=== PATIENT | female | born 1985 | race Caucasian/White ===

== ENCOUNTER 2021-03-29 01:30 | Day surgery (SDC) | payer OTHER, SELFPAY ==
[2021-03-22 09:23] VITALS: BMI 38.0
--- NOTE | 2021-03-22 09:26 | SUR.PREOP ---
Report to the Outpatient Waiting Room, entrance under the green pavilion located off [facility], at time _0830_ on date _03/29/21 _. OR Time: _1030__. - You and your visitor will be asked a series of questions to screen for COVID 19 for your protection. - A mask is required within the hospital. - Only one visitor is allowed at this time. Patient visitors will be guided where to wait when not with patient. Preoperative COVID Testing Requirements: No COVID Test needed if: (proof is required; if not received patient will have Rapid Test prior to entry) - Patient has received COVID Vaccine at least 14 days prior to procedure date or - Patient has positive COVID test result within last 90 days of surgery date. COVID Test needed if above criteria is not met If not COVID vaccinated a COVID test must be conducted within 72 hours of surgery and patient is asked to isolate self from time of testing until procedure. You will go to the [facility] for your COVID testing. The [facility] is located at the corner of [address] [facility]. You will only be called if COVID results are positive and your surgeon may reschedule your elective surgery date. PT TO BRING COVID TEST RESULTS MORNING OF SURGERY Patients may have clear liquids (water, carbonated beverages, clear teas, apple juice) until 3 hours prior to surgery with a maximum of 20 ounces. - No food from midnight until time of surgery BEFORE 0730 MORNING OF SURGERY - Infants may have breast milk until 4 hours before surgery, infant formula 6 hours prior to surgery. - Children will be allowed to drink immediately following surgery. If applicable, please bring a bottle or sippy cup to assist with drinking. Juice, water, soda, and popsicles are readily available. For infants on formula, please bring formula the day of surgery. Pacifiers are allowed. Take the following medications with a SIP of water the morning of surgery: N/A Medications to discontinue per physician ____N/A Date to take last dose____N/A Please no make-up, nail costa rican, hairspray, perfume, deodorant, or body powder the day of surgery. No jewelry (including any body piercings) or valuables the day of surgery, leave them at home. Please take a shower or bath the night before, or the morning of, surgery with an antibacterial soap. Wear comfortable, loose fitting clothing. Children are encouraged to wear pajamas. - Jewelry must be removed prior to entering the operating room. Rings and piercings that are not removed may be cut off. - The hospital will not accept responsibility for valuables. - Please leave all valuables, including medications, at home the day of surgery. If you are going home after surgery, a licensed cdl flatbed truck driver must drive you home. - NO public transportation without another adult. - We recommend that an adult stay with you for 24 hours following discharge. - We also recommend that you do not drive, make important decision, drink alcoholic beverages, or take any drugs that were not prescribed by your health care provider for at least 24 hours after your discharge time. For Pediatric surgeries, we recommend two adults accompany the child home (only one inside the building at this time). Follow any additional instructions given to you from your surgeon. Telephone instructions given to __PATIENT__and asked if any additional questions and then verbalized understanding. Patient advised to call surgeon office or pre surgery nurse liaison [phone] if any additional questions.
--- NOTE | 2021-03-29 07:24 | WPDHPUPDATE1 ---
History and Physical Update Update Date/Time: 03/29/21 07:24 History and Physical has been reviewed, including an updated exam of the patient. There are NO changes in the patient's condition. Risks, benefits, and alternatives have been discussed and questions answered. Patient agrees to proceed with procedure.
--- NOTE | 2021-03-29 07:25 | PM.HPGS ---
History of Present Illness History of Present Illness Consent: Risks, benefits, and alternatives have been discussed and questions answered. Patient agrees to proceed with procedure. Chief complaint: ALLIE II Narrative: Jennifer Marcial is a 36 year old female with persistent abnormal Pap smears. Current Pap test read atypical squamous cells of undetermined significance rule out high-grade. Biopsy revealed moderate dysplasia on endocervical curettings. Patient presents for a LEEP with top hat. Risks of infection, bleeding injury to surrounding tissue, and persistent disease were reviewed. Patient is considering hysterectomy depending on this current result. Review of Systems Review of Systems: not repeated day of surgery; patient states no changes in status REPLACED BY [facility] Past Medical History Medical History (Updated 03/29/21 @ 07:29 by Bibi Linn MD) Anxiety Elevated cholesterol (normal spontaneous vaginal delivery) X2 Surgical History Surgical History (Updated 03/29/21 @ 07:28 by Bibi Linn MD) H/O left knee surgery History of tonsillectomy and adenoidectomy Status post LEEP (loop electrosurgical excision procedure) of cervix 2019 with ALLIE 3 Social History Social History Smoking status: Never smoker Substance use type: does not use Meds Home Medications and Allergies Home Medications Medication Instructions Recorded Confirmed Type No Home Medications 03/22/21 03/22/21 History Allergies Allergy/AdvReac Type Severity Reaction Status Date / Time No Known Allergies Allergy Unverified 05/25/18 10:49 Exam Const: General: healthy appearing and alert Orientation/consciousness: patient oriented x3 Resp: Effort & Inspection: normal respiratory effort Auscultation: clear to auscultation bilaterally Cardio: Rate: regular rate Rhythm: regular rhythm GI: GI Palp: Yes Soft to palpation, No Tenderness to palpation present (GI) and No Palpable mass present : External Female Exam: normal external appearance Speculum Exam - Vagina: normal appearance of the vagina and normal vaginal discharge Speculum Exam - Cervix: normal appearance of the cervix and Other cervical findings present (Colposcopy reveals no ectocervical lesions ) Bimanual exam- vagina & uterus: uterine size normal and consistency normal Bimanual Exam- Adnexa, other: normal adnexae and No adnexal tenderness Neuro: General: patient oriented x3 Assessment and Plan Assessment and plan (1) Moderate dysplasia of cervix: Code(s): N87.1 - Moderate cervical dysplasia Status: Acute Assessment and Plan: Plan is to proceed with LEEP with top hat
[2021-03-29] MEDS: ACETAMINOPHEN 500 MG TABLET 1000 MG PO (09:18)
[2021-03-29] MEDS: LACTATED RINGERS 1,000 ML 30 ML IV CONT (09:46)
--- NOTE | 2021-03-29 09:46 | P.PNAN_ITS ---
Anes - Initial Pre Proc Eval Procedure: Operation Date: 03/29/21 10:30 Proposed Procedures p Loop Electrical Excision Procedure with Top Hat - Bibi Linn MD Date/Time: 03/29/21 09:46 Surgeon: Bibi Linn MD Pre Op Diagnosis: ALLIE II Patient Data Age: 36 Gender: F Height: 1.73 m Weight: 113.4 kg Allergies Allergy/AdvReac Type Severity Reaction Status Date / Time No Known Allergies Allergy Verified 03/29/21 09:15 Home Medications Medication Instructions Recorded Confirmed Type No Home Medications 03/22/21 03/22/21 History Patient hx anesthesia problems: none Family hx anesthesia problems: none Results Review: All pre-operative results and documents have been reviewed as part of the pre-operative evaluation. FORMERLY [facility] Past Medical History Medical History Anxiety Elevated cholesterol (normal spontaneous vaginal delivery) X2 Surgical History Surgical History H/O left knee surgery History of tonsillectomy and adenoidectomy Status post LEEP (loop electrosurgical excision procedure) of cervix 2019 with ALLIE 3 Social History Social History Smoking status: Never smoker Substance use type: does not use Anes - Eval Final PreProcedure Day of Procedure 03/29/21 09:46 Patient weight: obese Heart: regular rate and rhythm Lungs: clear to auscultation Airway: Mallampati scale class II Neurological: alert and oriented Last oral intake: >/= 8 hours ASA classification: II Emergent: no Anesthetic plan: proceed Anesthesia type and monitoring: general GIVS and standard monitoring Results Review: All pre-operative results and documents have been reviewed as part of the pre-operative evaluation. Informed Consent: The patient's anesthetic plan and its attendant risks and benefits were discussed with the patient/family/POA. Questions were solicited and answers provided to the satisfaction of the patient/family/POA.
[2021-03-29 09:49] VITALS: BP 147/83; PULSE 77; RESP 18; TEMP 36.4; O2SAT 99; BMI 39.9
--- NOTE | 2021-03-29 09:58 | SUR.PREOP ---
0940; DR TALAMANTES AT BEDSIDE SPEAKING TO PT. PT STATES SHE'S BEEN HAVING SOME CHEST PAINS PT POINTED TO UPPER STERNUM AREA. STATES ITS WHEN SHE BENDS HER HEAD DOWN. DR TALAMANTES STATES PROBABLY MUSCULOSKELETAL IF PAIN INCREASES WITH MOVEMENT.
[2021-03-29] MEDS: LIDO 1%/EPINEPHRINE 1:100,000 50 ML VIAL 10 ML INFILTRATE (10:28)
[2021-03-29] MEDS: KETOROLAC 30 MG/ML VIAL (*BKC) IV PUSH (10:51)
--- NOTE | 2021-03-29 10:53 | P.OP_ITS ---
Procedure Note - Detailed Date of Procedure 03/29/21 Pre-op Diagnosis ALLIE II Post-op Diagnosis same Procedure Performed LEEP conization with top-hat Surgeon Bibi Linn MD Anesthesia MAC and local Description of Procedure The patient was taken to the operating room and placed under anesthesia in the dorsal lithotomy position. [place] speculum coated was placed in the vagina and the cervix was not able to be visualized posteriorly the lateral wall retractor was used and still unable to visualize well. The long Sidhu speculum was placed as well as the lateral wall retractor and the cervix was able to be fully visualized. The cervix was injected in each quadrant with 1% lidocaine with epinephrine. 10cc total was used. The 2x1cm loop is used to obtain the single pass loop. A 1x1cm loop is used to obtain the top hat. Monsel's was applied to the cone bed and instruments are removed. Sponge, needle, and instrument counts are correct per the OR staff. Patient is awakened from anesthesia and taken to recovery room in stable condition. Estimated Blood Loss 5 Drains No Packing No Pathology yes (LEEP cone marked at 6 with split and top hat) Complications No immediate complications Condition stable Disposition PACU
[2021-03-29 10:58] VITALS: BP 113/66; PULSE 72; RESP 16; O2SAT 98
[2021-03-29 11:30] VITALS: BP 115/68; PULSE 63; O2SAT 99
[2021-03-29 12:00] VITALS: BP 115/73; PULSE 67
== END 2021-03-29 12:25 | disposition home or self-care (01) ==
PROVIDERS: PCP Nurse Practitioner; Visit Provider Obstetrics & Gynecology Gynecology
PROC: 0UBC7ZZ Excision of Cervix, Via Natural or Artificial Opening (ICD-10-PCS; CPT 57522; principal; 2021-03-29 10:30)
DX: D06.0 Carcinoma in situ of endocervix (principal); F41.9 Anxiety disorder, unspecified; E78.00 Pure hypercholesterolemia, unspecified; E66.9 Obesity, unspecified; Z68.39 Body mass index [BMI] 39.0-39.9, adult
CPT/HCPCS: 57522; 88305; A9270; J1100; J1885; J2250; J2405; J2704; J3010; J7120

== ENCOUNTER → 2021-07-30 14:29 | Outpatient (CLI) | payer SELFPAY ==
--- NOTE | ~2021-07-30 | MR_ITS ---
EXAMINATION: MR cervical spine wo con DATE: 07/30/2021 16:00 INDICATION: Severe neck pain. TECHNIQUE: Magnetic resonance imaging (MRI) of the cervical spine was performed without intravenous c ontrast. Sequences included sagittal T2-weighted FSE, sagittal T2-weighted FS FSE, sagittal T1-weight ed FSE, axial MERGE, and axial T2-weighted FSE. COMPARISON: None FINDINGS: There is 3 degrees dextrocurvature of cervicothoracic spine. Vertebral body heights are nor mal. There is mildly decreased disc height at C5-C6. The spinal cord signal intensity is normal. The following disc levels are specifically discussed: C2-C3: The disc does not extend beyond the endplate margin. There is no uncovertebral joint osteoarth ritis. There is no facet joint osteoarthritis. There is no neural foraminal stenosis. There is no makayla tral canal stenosis. C3-C4: The disc does not extend beyond the endplate margin. There is mild left uncovertebral joint os teoarthritis. There is mild bilateral facet joint osteoarthritis. There is no neural foraminal stenos is. There is no central canal stenosis. C4-C5: The disc does not extend beyond the endplate margin. There is no uncovertebral joint osteoarth ritis. There is no facet joint osteoarthritis. There is no neural foraminal stenosis. There is no makayla tral canal stenosis. C5-C6: There is a central protrusion. There is no uncovertebral joint osteoarthritis. There is no fac et joint osteoarthritis. There is no neural foraminal stenosis. There is mild central canal stenosis. C6-C7: The disc does not extend beyond the endplate margin. There is no uncovertebral joint osteoarth ritis. There is mild right and moderate left facet joint osteoarthritis. There is no neural foraminal stenosis. There is no central canal stenosis. C7-T1: The disc does not extend beyond the endplate margin. There is no uncovertebral joint osteoarth ritis. There is mild bilateral facet joint osteoarthritis. There is no neural foraminal stenosis. The re is no central canal stenosis. IMPRESSION: 1. Mild cervical spondylosis. Reviewed, dictated and finalized at location A.
== END ==
PROVIDERS: Visit Provider Emergency Medicine
DX: M54.2 Cervicalgia (principal); M54.6 Pain in thoracic spine; M47.812 Spondylosis without myelopathy or radiculopathy, cervical region
CPT/HCPCS: 72141

== ENCOUNTER 2022-12-04 03:10 | Emergency (ER) | payer OTHER, SELFPAY | END 2022-12-04 15:30 | disposition home or self-care (01) | LOC: EXPGOSH 12-07 15:41 | PROVIDERS: Emergency Provider Nurse Practitioner Family | DX: M25.512 Pain in left shoulder (principal) | CPT/HCPCS: 99213; G0463 ==

== ENCOUNTER 2022-12-13 06:35 | Outpatient (CLI) | payer OTHER, SELFPAY ==
--- NOTE | ~2022-12-13 | MR_ITS ---
EXAMINATION: MR shoulder LT wo con DATE: 12/13/2022 07:29 INDICATION: Left rotator cuff injury. Left shoulder pain. TECHNIQUE: Magnetic resonance imaging (MRI) of the left shoulder was performed without intravenous co ntrast. Sequences included axial PD-weighted FS FSE, coronal oblique PD-weighted FS FSE and T2-weight ed FS FSE, and sagittal oblique T2-weighted FS FSE and T1-weighted FSE. COMPARISON: None. FINDINGS: Coracoacromial arch: The acromion undersurface is curved in morphology (type II). There is mild acromioclavicular joint os teoarthritis. There is a physiologic volume of fluid in subacromial/subdeltoid bursa. Rotator cuff: Supraspinatus tendon is normal. There is mild infraspinatus tendinopathy. Teres minor tendon is jennifer l. Subscapularis tendon is normal. The rotator cuff muscle bellies are normal. Biceps tendon and glenoid labrum: Biceps tendon is in bicipital groove. Intra-articular biceps tendon is normal. The glenoid labrum is normal. Fluid: There is no glenohumeral joint effusion. Bones/cartilage: The glenoid cartilage is normal. Humeral head cartilage is normal. IMPRESSION: 1. Mild infraspinatus tendinopathy. No tear. 2. Mild acromioclavicular joint osteoarthritis. Reviewed, dictated and finalized at location A.
== END 2022-12-13 06:36 | disposition home or self-care (01) ==
LOC: ANHIMG 06:36
DX: S46.009A Unspecified injury of muscle(s) and tendon(s) of the rotator cuff of unspecified shoulder, initial encounter (principal); X58.XXXA Exposure to other specified factors, initial encounter; M19.012 Primary osteoarthritis, left shoulder
CPT/HCPCS: 73221

== ENCOUNTER 2023-10-10 02:08 | Day surgery (SDC) | payer OTHER, SELFPAY ==
[2023-09-26 15:25] VITALS: BMI 38.1
[2023-10-10 08:10] VITALS: BP 134/93; PULSE 76; RESP 17; TEMP 36.1; O2SAT 96; BMI 38.9
[2023-10-10] MEDS: LACTATED RINGERS 1,000 ML 150 ML IV CONT (08:30)
--- NOTE | 2023-10-10 08:40 | WPDANESEPPF ---
Anes - Initial Pre Proc Eval Procedure: Operation Date: 10/10/23 09:30 Proposed Procedures p Esophagogastroduodenoscopy & Colonoscopy - Omar Bear MD Date/Time: 10/10/23 08:40 Surgeon: Omar Bear MD Pre Op Diagnosis: Personal history colon polyps, dysphagia unspecifi Patient Data Age: 38 Gender: F Height: 1.73 m Weight: 116.3 kg Last Vital Signs Temp 97 F L 10/10/23 08:10 Pulse 76 10/10/23 08:10 Resp 17 10/10/23 08:10 BP 134/93 H 10/10/23 08:10 Pulse Ox 96 10/10/23 08:10 O2 Del Method Room Air 10/10/23 08:10 Allergies Allergy/AdvReac Type Severity Reaction Status Date / Time No Known Allergies Allergy Verified 10/10/23 08:10 Home Medications Medication Instructions Recorded Confirmed Type No Home Medications 03/22/21 10/10/23 History Patient hx anesthesia problems: none Family hx anesthesia problems: none Results Review: All pre-operative results and documents have been reviewed as part of the pre-operative evaluation. FORMERLY [facility] Past Medical History Medical History (Updated 07/07/23 @ 10:48 by SOFIE Altamirano) Anxiety Dysphagia Elevated cholesterol Heartburn History of colon polyps (normal spontaneous vaginal delivery) X2 Obese Surgical History Surgical History H/O left knee surgery History of tonsillectomy and adenoidectomy Status post LEEP (loop electrosurgical excision procedure) of cervix 2019 with ALLIE 3 Social History Social History Smoking packs per day: 1 Smoking cigarettes per day: 20.0 Years smoked: 6 Smoking pack-years: 6.00 Smoking status: Former smoker Tobacco type: cigarettes Alcohol intake: never Alcohol use details: Socially Substance use type: does not use Living arrangements: other Additional living arrangements comments: with sp Spiritual care concerns: No Anes - Eval Final PreProcedure Day of Procedure 10/10/23 08:40 Patient weight: morbidly obese Heart: regular rate and rhythm Lungs: clear to auscultation Airway: Mallampati scale class II Neurological: alert and oriented Last oral intake: >/= 8 hours ASA classification: III Emergent: no Anesthetic plan: proceed Anesthesia type and monitoring: general GIVS and standard monitoring Results Review: All pre-operative results and documents have been reviewed as part of the pre-operative evaluation. Informed Consent: The patient's anesthetic plan and its attendant risks and benefits were discussed with the patient/family/POA. Questions were solicited and answers provided to the satisfaction of the patient/family/POA.
--- NOTE | 2023-10-10 09:17 | PM.HPGS ---
History of Present Illness History of Present Illness Consent: Risks, benefits, and alternatives have been discussed and questions answered. Patient agrees to proceed with procedure. Chief complaint: Personal history colon polyps, dysphagia unspecifi Narrative: Jennifer Marcial is a 38 year old female with gerd since 2006 currently not taking any medication but just recently decided to try gluten free diet and symptoms gone, also needs another colonoscopy, last one had polyp. Review of Systems Review of Systems: All systems reviewed & are unremarkable except as noted in HPI and below PMFSH Past Medical History Medical History (Updated 07/07/23 @ 10:48 by VLAD AltamiranoN-Valentin) Anxiety Dysphagia Elevated cholesterol Heartburn History of colon polyps (normal spontaneous vaginal delivery) X2 Obese Surgical History Surgical History H/O left knee surgery History of tonsillectomy and adenoidectomy Status post LEEP (loop electrosurgical excision procedure) of cervix 2019 with ALLIE 3 Social History Social History Smoking packs per day: 1 Smoking cigarettes per day: 20.0 Years smoked: 6 Smoking pack-years: 6.00 Smoking status: Former smoker Tobacco type: cigarettes Alcohol intake: never Alcohol use details: Socially Substance use type: does not use Living arrangements: other Additional living arrangements comments: with sp Spiritual care concerns: No Meds Home Medications and Allergies Home Medications Medication Instructions Recorded Confirmed Type No Home Medications 03/22/21 10/10/23 History Allergies Allergy/AdvReac Type Severity Reaction Status Date / Time No Known Allergies Allergy Verified 10/10/23 08:10 Vital Signs Vital Signs - 24 hr 10/10/23 08:10 Temperature 97 F L Pulse Rate 76 Respiratory Rate 17 Blood Pressure 134/93 H Pulse Oximetry 96 Oxygen Delivery Room Air Exam Const: General: comfortable and no acute distress HENMT: Face/Nose/Sinus: Normal nares present Eyes: General: appearance normal, both eyes and all related structures Neck: Neck: no JVD Resp: Auscultation: clear to auscultation bilaterally Cardio: Rate: regular rate Rhythm: regular rhythm GI: Inspection: non-distended GI Palp: Yes Soft to palpation Skin: General skin exam: normal color Neuro: General: gait normal Speech: normal speech Extrem: General: normal to inspection Psych: Mental Status: mental status grossly normal Assessment and Plan Assessment and plan (1) Heartburn: Code(s): R12 - Heartburn Status: Acute Assessment and Plan: egd with bx (2) History of colon polyps: Code(s): Z86.010 - Personal history of colonic polyps Status: Acute Assessment and Plan: colonoscopy
--- NOTE | 2023-10-10 09:31 | SUR.OPER ---
EGD end 925 COLONSCOPY START 929
[2023-10-10 09:47] VITALS: BP 109/62; PULSE 68; RESP 21; O2SAT 100
[2023-10-10 09:57] VITALS: BP 129/82; PULSE 65; RESP 16; O2SAT 99
[2023-10-10 10:07] VITALS: BP 131/66; PULSE 66; RESP 14; O2SAT 99
== END 2023-10-10 10:16 | disposition home or self-care (01) ==
PROVIDERS: PCP Nurse Practitioner; Referring Provider Nurse Practitioner Family; Visit Provider Internal Medicine Gastroenterology
PROC: 0DJ08ZZ Inspection of Upper Intestinal Tract, Via Natural or Artificial Opening Endoscopic (ICD-10-PCS; CPT 43235; principal; 2023-10-10 09:30)
DX: Z12.11 Encounter for screening for malignant neoplasm of colon (principal); D12.3 Benign neoplasm of transverse colon; K29.80 Duodenitis without bleeding; K29.50 Unspecified chronic gastritis without bleeding; K21.9 Gastro-esophageal reflux disease without esophagitis; Z87.891 Personal history of nicotine dependence; E66.01 Morbid (severe) obesity due to excess calories; Z68.39 Body mass index [BMI] 39.0-39.9, adult
CPT/HCPCS: 45385; 43239; 88305; 88342; J2704; J7120

== ENCOUNTER 2024-06-14 14:46 | Outpatient (CLI) | payer OTHER, SELFPAY ==
--- NOTE | ~2024-06-14 | MR_ITS ---
EXAMINATION: MR ankle LT wo con DATE: 06/14/2024 15:19 INDICATION: Left ankle pain TECHNIQUE: Magnetic resonance imaging (MRI) of the left ankle was performed without intravenous contr ast. Sequences included sagittal, coronal, and axial proton-density weighted fast spin echo without a nd with fat saturation. COMPARISON: None. FINDINGS: Medial ankle ligaments: Deep and superficial deltoid ligaments as well as the spring ligament are normal. Lateral ankle ligaments: The anterior and posterior inferior tibiofibular ligaments are normal. The calcaneofibular and deputy harbormaster ior talofibular ligaments are normal. There is attenuation of the anterior talofibular ligament witho ut surrounding edema consistent with sequela of chronic partial tear. Tendons: Achilles tendon is normal. The peroneus longus and brevis tendons are normal. The tibialis anterior a nd extensor hallucis longus and extensor digitorum longus tendons are normal. The tibialis posterior, flexor digitorum longus and flexor hallucis longus tendons are normal. Plantar fascia: Plantar aponeurosis is normal. Bones/other: Likely chronic osteochondral lesion extending 1.8 cm anteroposteriorly along the medial rim of the ta lar dome with collapse of the articular cortex and underlying subarticular cystlike changes. Small lo w signal intensity bone island at the talar dome. No fracture or pathologic marrow replacing process. Joint spaces are otherwise normal. Fluid: Physiologic amount fluid in the joint space. Small ganglion cyst arising from the lateral dorsal cristian in of the talonavicular joint. No tenosynovitis, bursitis or other abnormal fluid collections. IMPRESSION: 1. Chronic osteochondral lesion some collapse of the articular cortex along the medial rim of the monique ar dome. 2. 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 Reviewed, dictated and finalized at location A. SMISSION TESTER IMPRESSION: 1. Chronic osteochondral lesion some collapse of the articular cortex along the medial rim of the talar dome. 2. 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
--- OUTSIDE RECORDS SUMMARY | 2024-06-14 14:50 | XMS_ITS | Clinical Summary ---
Author Organization [facility] Address [address] [place] [id number] Care Team Providers Care Director Of Preclinical Research Name Role Phone Geovani Dennis CLOTH MEASURER MACHINE Primary Care Provider [phone] Allergies No known active allergies Medications vitamin D2, ergocalciferol, (DRISDOL) 1.25 mg capsule Take 1 capsule (1.25 mg total) by mouth once a week. 3 Active probiotic (FLORAJEN3) Cap capsule Take 1 capsule by mouth daily with breakfast. Active Cholecalciferol (VITAMIN D-3 OR) Take as directed. Active Menaquinone-7 (K2 OR) Take as directed. Active methylPREDNISolon e, TATYANA, (MEDROL DOSEPAK) 4 MG tabletIndications :Acute streptococcal pharyngitis Take 1 tablet (4 mg total) by mouth daily. 6 TABLETS ON DAY ONE, 5 TABLETS DAY TWO, 4 TABLETS DAY THREE, 3 TABLETS DAY FOUR, 2 TABLETS DAY FIVE, AND 1 TABLET DAY SIX 1 each 4 Active Additional Information Patient not taking.Reported on 05/21/2024 Active Problems Problem Noted Date Diagnosed Date Family history of skin cancer 08/25/2022 Chronic right-sided thoracic back pain 3 Knee injury 11/03/2015 Anxiety disorder 08/14/2014 Overview (08/20/2020): Date Onset: 08/19/2011 Depressive disorder 08/14/2014 Overview (08/20/2020): Date Onset: 08/19/2011 Vitamin D deficiency 08/14/2014 Encounters Date Type Department Care Team Description 06/11/2024 Telephone [facility] [address] [place] [address] Geovani Dennis FNP Information 06/03/2024 1:02 PM AEROSPACE TECHNICIAN - 06/03/2024 11:59 PM AEROSPACE TECHNICIAN Hospital Encounter [facility] [address] [place] [address] Birgit Avina MD Discharge Disposition: Home or Self Care (Routine Discharge) 06/03/2024 Orders Only [facility] [address] [place] [address] Birgit Avina MD 05/21/2024 1:20 PM AEROSPACE TECHNICIAN - 05/21/2024 11:59 PM AEROSPACE TECHNICIAN Hospital Encounter [facility] [address] [place] [address] Geovani Dennis FNP Discharge Disposition: Home or Self Care (Routine Discharge) 05/21/2024 12:40 PM AEROSPACE TECHNICIAN Office Visit [facility] [address] [place] [address] Geovani Dennis FNP Ankle (Hurt left ankle Monday, went to turn and it popped really loud, swollen, using ice) 05/21/2024 Orders Only [facility] [address] [place] [address] Geovani Dennis FNP 05/21/2024 Travel from Last 3 Months Immunizations Name Administration Dates Next Due Influenza Adult (Generic) 05/03/2012 Tdap (Generic) 09/27/2012 Social History Tobacco Use Types Packs/Day Years Used Date Smoking Tobacco: Never Passive Smoke Exposure: Never Smokeless Tobacco: Never Tobacco Cessation:Counseling Given: No Comments:Pcp to dianetic counselor Alcohol Use Standard Drinks/Week Comments Yes 0 (1 standard drink = 0.6 oz pur e alcohol) AUDIT-C Answer Date Recorded Q1: How often do you have a drink containing alc ohol? Monthly or less 08/20/2020 Average Number of Drinks Not on file 021 Frequency of Binge Drinking Not on file 07/31 PHQ-2 Answer Date Recorded Patient Health Questionnaire-2 Score 0 06/15/2023 Comments No Sex and Gender Information Value Date Recorded Sex Assigned at Female 05/21/2024 1:23 PM AEROSPACE TECHNICIAN Legal Sex Female 7:15 PM CDT Gender Identity Not on file Sexual Orientation Not on file Last Filed Vital Signs Vital Sign Reading Time Taken Comments Blood Pressure 120/82 05/21/2024 12:49 PM AEROSPACE TECHNICIAN Pulse 83 05/21/2024 12:49 PM AEROSPACE TECHNICIAN Temperature 36.3 C (97.3 F) 05/21/2024 12:49 PM AEROSPACE TECHNICIAN Respiratory Rate 16 09/23/2023 8:22 AM CDT Oxygen Saturation 97% 05/21/2024 12:49 PM AEROSPACE TECHNICIAN Inhaled Oxygen Concentration - - Weight 117.9 kg (260 lb) 05/21/2024 12:49 PM AEROSPACE TECHNICIAN Height 174 cm (5' 8.5 ) 05/21/2024 12:49 PM AEROSPACE TECHNICIAN Body Mass Index 38.96 05/21/2024 12:49 PM AEROSPACE TECHNICIAN Plan of Treatment Health Maintenance Due Date Last Done Comments Cervical Cancer Screening Pa p Smear (Age 30 to 64) Every 3 Years 1983 Annual Physical 1986 Hepatitis C 2001 Hepatitis B Vaccines (1 of 3 - 19+ 3-dose series) 2002 Cervical Cancer Screening Pa p with HPV Testing (Age 30 to 64) Every 5 Years 2013 Cervical Cancer Screening with HPV 2013 DTaP, Tdap and Td Vaccines ( 2 - Td or Tdap) 09/27/2022 09/27/2012 Mammogram Screening 2023 COVID-19 Vaccine (2023-2 5 season) 2023 Influenza Adult (#1) 2024 05/03/2012 PHQ-2 (Physician [place]) 05/01/2024 06/15/2023 HPV Vaccines Aged Out No longer eligi ble based on patient's age to complete this topic Meningococcal B Vaccine Aged Out No l onger eligible based on patient's age to complete this topic Meningococcal Vaccine Aged Out No filippo dinah eligible based on patient's age to complete this topic Pneumococcal Vaccine: Pediat rics (0 to 5 Years) and At-Risk Patients (6 to 64 Years) Aged Out No longer eligi ble based on patient's age to complete this topic RSV Immunizations Under 20 Months Aged Out No longer eligible based on patient's age to complete this topic Procedures Procedure Name Priority Date/Time Associated Diagnosis Comments CBC W/DIFF AUTOMATED Routine 06/03/2024 12:20 PM AEROSPACE TECHNICIAN Erythrocytosis LDH, LACTATE DEHYDROGENASE Routine 06/03/2024 12:20 PM AEROSPACE TECHNICIAN Erythrocytosis ERYTHROPOIETIN Routine 06/03/2024 12:20 PM AEROSPACE TECHNICIAN Erythrocytosis XR ANKLE LT M3V Routine 05/21/2024 1:38 PM AEROSPACE TECHNICIAN Ankle injury, left, initial encounter from Last 3 Months Results * LDH, LACTATE DEHYDROGENASE (06/03/2024 12:20 PM AEROSPACE TECHNICIAN) LDH 196 84 - 246 UNITS/L 06/03/2024 8:24 PM AEROSPACE TECHNICIAN [facility] 06/03/2024 12:2 0 PM AEROSPACE TECHNICIAN us Birgit Avina MD LABORATORY Final Result [facility] [address] [place] [address], * ERYTHROPOIETIN (06/03/2024 12:20 PM AEROSPACE TECHNICIAN) ERYTHROPOIETIN 13.8 2.6 - 18.5 mIU/mL 06/05/2024 8:57 PM AEROSPACE TECHNICIAN [facility] PAT-MALINDA LY Comment: Test Performed by Mike Varner, [facility] Pat [facility], [address] [place] [address] Glenn Omalley M.D., Ph.D., Director of Laboratories , [place] [id number] 06/03/2024 12:2 0 PM AEROSPACE TECHNICIAN us Birgit Avina MD LABORATORY Final Result [facility] [address] [place] [address], [place] [phone] * (ABNORMAL) CBC W/DIFF AUTOMATED (06/03/2024 12:20 PM AEROSPACE TECHNICIAN) [facility] WBC 6.61 4.50 - 11.00 x10'3/uL 06/03/2024 1:24 PM AEROSPACE TECHNICIAN [facility] RBC 5.14 4.00 - 5.20 x10'6/uL 06/03/2024 1:24 PM [facility] HGB 15.2 12.0 - 16.0 G/DL 06/03/2024 1:24 PM [facility] HCT 43.0 38.0 - 48.0 % 06/03/2024 1:24 PM [facility] MCV 83.7 80.0 - 100.0 FL 06/03/2024 1:24 PM [facility] MCH 29.6 26.0 - 34.0 PG 06/03/2024 1:24 PM [facility] MCHC 35.3 31.0 - 37.0 G/DL 06/03/2024 1:24 PM [facility] RDW 12.0 11.6 - 14.8 % 06/03/2024 1:24 PM [facility] PLT 220 130 - 400 x10'3/uL 06/03/2024 1:24 PM [facility] MPV 10.4 7.0 - 12.0 FL 06/03/2024 1:24 PM [facility] CBC COMMENT AUTOMATED RBC MORPHOLOGY AND PLATELET EVALUATION NORMAL 06/03/2024 1:24 PM [facility] NEUTROPHILS % 60.0 40.0 - 74.0 % 06/03/2024 1:24 PM [facility] LYMPHOCYTES % 26.9 14.0 - 46.0 % 06/03/2024 1:24 PM [facility] MONOCYTES % 6.4 4.0 - 13.0 % 06/03/2024 1:24 PM [facility] EOSINOPHILS 5.3 0.0 - 7.0 % 06/03/2024 1:24 PM [facility] BASOPHILS 0.5 0.0 - 3.0 % 06/03/2024 1:24 PM [facility] IMMATURE GRANS % 0.9(H) 0.0 - 0.43 % 06/03/2024 1:24 PM AEROSPACE TECHNICIAN [facility] NRBC % 0.0 % 06/03/2024 1:24 PM AEROSPACE TECHNICIAN [facility] ABS. NEUTROPHILS TOTAL 3.97 1.69 - 7.81 x10'3/uL 06/03/2024 1:24 PM [facility] ABS. LYMPHOCYTES 1.78 0.21 - 5.42 x10'3/uL 06/03/2024 1:24 PM AEROSPACE TECHNICIAN [facility] ABS. MONOCYTES 0.42 0.04 - 1.37 x10'3/uL 06/03/2024 1:24 PM AEROSPACE TECHNICIAN [facility] ABS. EOSINOPHILS 0.35 0.00 - 0.68 x10'3/uL 06/03/2024 1:24 PM AEROSPACE TECHNICIAN [facility] ABS. BASOPHILS 0.03 0.00 - 0.08 x10'3/uL 06/03/2024 1:24 PM [facility] ABS. IMMATURE GRANULOCYTES 0.06 0.00 - 0.06 x10'3/uL 06/03/2024 1:24 PM AEROSPACE TECHNICIAN [facility] ABS. NUCLEATED RBC'S 0.00 0.00 - 0.01 x10'3/uL 06/03/2024 1:24 PM [facility] 06/03/2024 12:2 0 PM AEROSPACE TECHNICIAN Birgit Avina MD LABORATORY Final Result [address] [place] [address], [place] * XR ANKLE LT M3V (05/21/2024 1:38 PM AEROSPACE TECHNICIAN) Anatomical Region Laterality Modality Ankle Computed Tomogra phy 05/21/2024 1:53 PM AEROSPACE TECHNICIAN Impressions 05/21/2024 1:54 PM AEROSPACE TECHNICIAN IMPRESSION: No acute findings Ordered By: GEOVANI DENNIS Interpreted By: Vincent Cordoba MD, 05/21/2024 1:53 PM Narrative 05/21/2024 1:54 PM AEROSPACE TECHNICIAN [address] [place] [address] 3 VIEWS OF THE LEFT ANKLE Clinical History: Pain Comparison: June 15, 2023 Findin views of the left ankle demonstrate the bony elements to be intact. There is no evidence of fracture or dislocation. The ankle mortise is symmetric. The surrounding soft tissues appear normal. Procedure Note Vincent Cordoba MD - 05/21/[address] [place] [address] 3 VIEWS OF THE LEFT ANKLE Clinical History: Pain Comparison: June 15, 2023 Findin views of the left ankle demonstrate the bony elements to be intact.There is no evidence of fracture or dislocation. The ankle mortise issymmetric. The surrounding soft tissues appear normal. IMPRESSION: No acute findings Ordered By: GEOVANI DENNIS Interpreted By: Vincent Cordoba MD, 05/21/2024 1:53 PM Geovani Dennis CLOTH MEASURER MACHINE GENERAL IMAGING Final Result from Last 3 Months Insurance GENERIC - COMMERCIAL Care Teams Director Of Preclinical Research Relationship Specialty Start Date End Date Geovani Dennis FNP [address] [place] [address] [place] [address] PCP - General Nurse Practitioner Family 06/12/18
--- OUTSIDE RECORDS SUMMARY | 2024-06-14 14:50 | XMS_ITS | Clinical Summary ---
Author Organization [facility] Address [address], [facility] [address] [place] [address] Phone Care Team Providers Care Hot End Operator Name Role Phone Radha Dennis EDITH Primary Care Provider Gianni Temple MD Unavailable Allergies No known active allergies Medications ergocalciferol (VITAMIN D) [address] UNIT Capsule 03/02/2023 Active Lactobacillus (PROBIOTIC ACIDOPHILUS PO) Take by mouth. Active Cetirizine HCl (ZYRTEC PO) Take by mouth. Active Active Problems Problem Noted Date Diagnosed Date Polycythemia 04/03/2023 Encounters Date Type Department Care Team Description 06/03/2024 12:15 PM WELDING FOREMAN Clinical Support [facility] [address] [place] [address] [place] [phone] Nurse, [facility] Polycythemia (Primary Dx) 06/03/2024 12:00 PM WELDING FOREMAN Office Visit [facility] [address] [place] [address] [place] [phone] Birgit Avina MD Erythrocytosis (Primary Dx) 06/03/2024 Travel from Last 3 Months Family History Medical History Relation Name Comments Cancer Father Relation Name Status Comments Father Mother Alive Social History Tobacco Use Types Packs/Day Years Used Date Smoking Tobacco: Former Cigarettes Smokeless Tobacco: Never Tobacco Cessation:Counseling Given: No Alcohol Use Standard Drinks/Week Comments Not Currently 0 (1 standard drink = 0.6 oz pur e alcohol) Sexually Active Control Partners Comments Yes Comments Unknown Sex and Gender Information Value Date Recorded Sex Assigned at Not on file Legal Sex Female 1:05 PM WELDING FOREMAN Gender Identity Not on file Sexual Orientation Not on file Last Filed Vital Signs Vital Sign Reading Time Taken Comments Blood Pressure 120/82 06/03/2024 12:00 PM WELDING FOREMAN Pulse 87 06/03/2024 12:00 PM WELDING FOREMAN Temperature 36.8 C (98.2 F) 06/03/2024 12:00 PM WELDING FOREMAN Respiratory Rate - - Oxygen Saturation 98% 06/03/2024 12:00 PM WELDING FOREMAN Inhaled Oxygen Concentration - - Weight 117.9 kg (260 lb) 01/08/2024 8:24 AM CDT Height 174 cm (5' 8.5 ) 06/03/2024 12:00 PM WELDING FOREMAN Body Mass Index 38.96 01/08/2024 8:24 AM CDT Plan of Treatment Health Maintenance Due Date Last Done Comments Hepatitis C Virus (HCV) Screening 1983 Hepatitis B Immunization (1 of 3 - 19+ 3-dose series) 2002 Pap Smear 01/15/2004 Cervical Cancer Screening (CCS) 2013 HPV/Cotest 2013 Discussion re Starting/Frequency of Mammograms 2023 Influenza Immunization (#1) 12/31/202303/01, 03/18/2019, 05/03/2012 SARS-COV-2 Immunization ( season) 2023 Respiratory Syncytial Virus (RSV) Immunization (Adult) (1 - 1-dose 75+ series) 2058 DTaP/Tdap/Td Immunization Discontinued 09/27/2012 TdaP Immunization Completed 09/27/2012 Meningococcal Immunization (ACWY) Aged Out No longer eligible based on patient's age to complete this topic Pneumococcal Immunization Combined Aged Out No longer eligible based on patient's age to complete this topic Rotavirus Immunization Aged Out No lo nger eligible based on patient's age to complete this topic Insurance MEDICAID [employer] Care Teams Hot End Operator Relationship Specialty Start Date End Date Radha Dennis APRN [address] [place] [address] [place] [address] PCP - General Certified Nurse Practitioner 03/31/23 Gianni Temple MD [address] [place] [address] [place] [address] [place] [address] Consulting Physician Oncology 03/31/23
--- OUTSIDE RECORDS SUMMARY | 2024-06-14 14:50 | XMS_ITS | Encounter Summary ---
Author Organization [facility] Address [address] [place] [address] Care Team Providers Care Edge Beader Name Role Phone Radha Dennis Primary Care Provider [phone] Encounter Details Date Type Department Care Team (Late st Contact Info) Description 01/31/2023 [employer] Message Enc [facility] Family & Internal Medicine - [address] [phone] [place], [facility] Provider Screening Social History Tobacco Use Types Packs/Day Years Used Date Smoking Tobacco: Never Smokeless Tobacco: Never Comments:Pcp to residential substance abuse counselor Alcohol Use Standard Drinks/Week Comments Yes 0 (1 standard drink = 0.6 oz pur e alcohol) AUDIT-C Answer Date Recorded Q1: How often do you have a drink containing alc ohol? Monthly or less 08/20/2020 Average Number of Drinks Not on file 021 Frequency of Binge Drinking Not on file 07/31 PHQ-2 Answer Date Recorded Patient Health Questionnaire-2 Score 0 12/05/2022 Comments No Sex and Gender Information Value Date Recorded Sex Assigned at Female 05/21/2024 1:23 PM [employer] Legal Sex Female 7:15 PM CDT Gender Identity Not on file Sexual Orientation Not on file documented as of this encounter Plan of Treatment Not on file documented as of this encounter Visit Diagnoses Not on filedocumented in this encounter Care Teams Edge Beader Relationship Specialty Start Date End Date Radha Dennis FNP [address] [place] [address] [place] [address] PCP - General Nurse Practitioner Family 06/12/18 documented as of this encounter
--- OUTSIDE RECORDS SUMMARY | 2024-06-14 14:50 | XMS_ITS | Encounter Summary ---
Author Organization [facility] Address [address] [place] [address] Care Team Providers Care Nurse Healthcare Manager Name Role Phone Radha Dennis [facility] Primary Care Provider [phone] Encounter Details Date Type Department Care Team (Late st Contact Info) Description 01/04/2022 [employer] Message Enc [facility] [address] [place] [address] Radha Dennis [facility] [address] [place] [address] Back pain Social History Tobacco Use Types Packs/Day Years Used Date Smoking Tobacco: Never Smokeless Tobacco: Never Comments:Pcp to drapery counselor Alcohol Use Standard Drinks/Week Comments Yes 0 (1 standard drink = 0.6 oz pur e alcohol) AUDIT-C Answer Date Recorded Q1: How often do you have a drink containing alc ohol? Monthly or less 08/20/2020 Average Number of Drinks Not on file 021 Frequency of Binge Drinking Not on file 07/31 PHQ-2 Answer Date Recorded PHQ-2 Score - If the patient scores above 3, please move on to questions 3-9 0 08/27/2020 Comments No Sex and Gender Information Value Date Recorded Sex Assigned at Female 05/21/2024 1:23 PM CRIMINALIST Legal Sex Female 7:15 PM CDT Gender Identity Not on file Sexual Orientation Not on file documented as of this encounter Progress Notes * Jessie Cole RN - 01/04/2022 11:31 AM CDT I called pt and advised recheck office visit she advised she does not want to do this at this time,she thought she could just send a message to [place]; please note and advise documented in this encounter Plan of Treatment Not on file documented as of this encounter Visit Diagnoses Not on filedocumented in this encounter Care Teams Nurse Healthcare Manager Relationship Specialty Start Date End Date Radha Dennis FNP [address] [place] [address] [place] [address] PCP - General Nurse Practitioner Family 06/12/18 documented as of this encounter
== END 2024-06-14 14:47 | disposition home or self-care (01) ==
PROVIDERS: PCP Nurse Practitioner; Visit Provider Nurse Practitioner
DX: M93.262 Osteochondritis dissecans, left knee (principal); G89.29 Other chronic pain
CPT/HCPCS: 73721